=== PATIENT | female | born 1965 | race Caucasian/White ===

== ENCOUNTER 2017-10-07 03:27 | Inpatient (IN) | payer OTHER ==
[~2017-10-07] VITALS: Ht 152.4 cm; Wt 76.2 kg
[~2017-10-07 03:27] MED LIST: BUPROPION HCL150 M4 PO; ESCITALOPRAM OX20 MG PO; LAMICTAL150 M1 PO; MULTIVITAMINS1 EAC9 PO; TRAZODONE HCL50 M1 PO
[2017-10-07] MEDS ORDERED: ATIVAN1 M1 PO (08:11)
--- NOTE | 2017-10-07 10:32 | RADIOLOGY REPORT ---
EXAMINATION: XR LUMBAR SPINE CLINICAL INFORMATION: L4-L5 TLIF in OR. COMPARISON: CT scan of the lumbar spine dated 10/02/2017. TECHNIQUE: Crosstable lateral view of the lumbar spine FINDINGS/IMPRESSION: There is anterolisthesis of L4 on L5, a marker is present which is directed towards the L3-L4 intervertebral disc space.
--- NOTE | 2017-10-07 13:44 | Operative Report ---
Operative/Inv Procedure Report Surgery Date: 10/07/17 Name of Procedure: L 4/5 tlif, use of autograft, use of allograft, L4/5 posteriolateral fusion L4/5 posterior segment instrumentation with styrker yang, intervertebral device dennis tritanium, excision of L 4/5 synovial cyst, use of stealth navigation Pre-Operative Diagnosis: L4/5 spondylosis Post-Operative Diagnosis: same Estimated Blood Loss: 250 Surgeon/Rubber Mold Maker: pernell Padilla MD,Oly Mondragon Anesthesia: general endotracheal tube Operative/Procedure Note Note: dragon is down, help desk is not answering, I will dictate and send in
--- NOTE | 2017-10-07 13:51 | Operative Report ---
Operative/Inv Procedure Report Surgery Date: 10/07/17 Name of Procedure: 1. Bilateral L4 pars osteotomies 2. L4/5 far lateral discectomy 3. L4 5 transforaminal lumbar interbody fusion with [place] titanium cage, autograft 4. Nonsegmental L4 5 posterior lateral arthrodesis with [place] Suggs pedicle screws and rods, autograft, V toss, iliac crest bone marrow aspirate 5. O arm neuro navigation 6. Right iliac crest bone marrow aspirate 7. Resection of right L4 5 synovial cyst Pre-Operative Diagnosis: L4 5 spondylolisthesis, L4 5 stenosis Post-Operative Diagnosis: Same Estimated Blood Loss: 550cc Surgeon/Machine Biller: Randy CRAWFORD,Miko Torres M.D. Anesthesia: general endotracheal tube Monitors: Neurophysiologic monitoring IV Fluids: 3.1 L crystalloid Implants: Kylee Urine Output: 395 mL via Wu Drains: Medium Hemovac Specimens: L4 5 disc material, L4 5 synovial cyst Complications: None Condition: Stable Operative Indication: Patient is a 52-year-old woman status post work-related injury to her low back with a L4 5 spondylolisthesis and stenosis. She is had intractable back and leg pain, right greater than the left, despite prolonged conservative treatment. Given her ongoing symptoms which have failed to respond to nonoperative treatment, she now presents for surgical decompression and instrumented fusion. Operative/Procedure Note Note: Patient was taken to the operating room. After appropriate patient identification and surgical timeout, neurophysiologic monitoring leads were placed and baseline recordings obtained the patient underwent smooth induction of general endotracheal anesthesia without incident. Wu catheter was sterilely inserted. DVT prophylaxis was utilized throughout the case. Patient given 2 g of IV Preoperative Prophylaxis, Redosed at 4 Hours Mid Case. With All Tubes and Lines Secured She Was Carefully Turned to the Prone Position on the Andrea Table Taking Care to Ensure That All Pressure Points Were Well-Padded. The Lumbar Region Was Widely Prepped and Draped in Usual Sterile Fashion Using Povidone Solution. A Vertical Midline Skin Incision Was Marked and Infiltrated with Local Anesthetic. Localizing X-Ray Was Obtained with a Small Gauge Spinal Needle Placed Superficially Identifying This at the Level of L3 4. Skin incision was made just caudal to our theo with a 10 blade knife and extended caudally. A self-retaining retractor was placed. Dissection was carried through the subcutaneous tissue with the Bovie to the lumbodorsal fascia. The fascia was incised in midline and a subperiosteal dissection lumbar paravertebral muscles was performed bilaterally Bovie exposing underlying spinous processes lamina and the facet joints. Facets of L4 5 were noted to be markedly hypertrophic. Multiple synovial cysts were resected from the right facet passed off as specimen. A [place] 4 was placed at the presumed L4 pars and intraoperative x-ray was obtained and confirmed the correct localization. We exposed the transverse processes of L4 and L5 bilaterally which were decorticated with a high-speed drill and the lateral gutters packed. . We then focused our attention to the decompression. A L4 5 laminectomy, bilateral pars osteotomy and facetectomies were performed using the combination of Leksell rongeur, bone scalpel, and Kerrisons skeletonizing the pedicles of L4 and L5 bilaterally and widely decompressing the exiting L4, traversing L5 nerve roots, and midline thecal sac. We elected to place the pedicle screws first. The O arm reference arc was attached to the L5 spinous process and a spin was obtained. Working with O arm navigation, entry points for pedicle screws at L4 and L5 were selected bilaterally and marked with the drill. The pedicles were traversed with a gearshift under navigation. The holes were sounded, tapped, resounded and FloSeal placed within the pedicles to minimize backbleeding. Then working from the patient's more symptomatically right side, the thecal sac was gently mobilized to the midline. The underlying disc annulus was identified. A cuff of overlying venous epidural tissue was coagulated and divided. An annulotomy was made with a 11 blade knife and discectomy was performed with straight and angled curettes, disc space carin and rasps until all the cartilaginous endplates were removed. After appropriate trials, a 14 x 23 x 6 [place] titanium cage was selected. The cage was packed with morcellated autograft from the decompression and gently tamped into the interspace under direct guidance. Cage was countersunk. 15 mL of right iliac crest bone marrow aspirate was then obtained via a Jamshidi needle. This was added to the morcellated autograft. Autograft was then packed over the transverse processes from L4 to L5 bilaterally and further compressed with 2.5 mL of V toss on both sides. Once the cage was in position, pedicle screws were placed in predrilled holes. 6.5 x 45 mm screws were placed bilaterally at L4, 6.5 x 40 mm placed bilaterally at L5. With the L5 pedicle screws in place, we did note a hairline medial fissuring of the pedicle. Screws themselves were well seated good purchase. We obtained a second spin of the O arm confirming placement all the instrumentation which appeared in good position. 40 mm rods were then top loaded into the screws and locking caps placed. Gentle compression was placed across the L4 5 interspace and the screws were finally tightened with an antitorque device. A cross-link connector was placed and secured. Hemostasis is achieved using a bipolar, FloSeal, thrombin-soaked Gelfoam. The wound was scoped C irrigated with sterile saline bacitracin irrigation. 1 g of IV vancomycin powder was placed in the wound on the cut muscle and soft tissue surfaces. A medium Hemovac drain was placed into the wound and secured to the skin with a 2-0 nylon suture. Monitoring was stable and we began wound closure. Deep muscle was reapproximated interrupted 0 Vicryl suture the lumbodorsal fascia was reapproximated interrupted 0 Vicryl suture. Subcutaneous tissue was copiously irrigated and closed with interrupted 2-0 Vicryl suture and the skin was closed with tatiana. Wounds clean and dried. Bacitracin and a sterile occlusive dressing was placed. Patient was returned to the supine position, awakened extubated and taken to PACU in stable condition. She was noted to be moving all 4 extremities at the completion of the case. All sponge, needle, and injuring counts are correct at the completion of the procedure 3. Neurophysiologic monitoring was stable throughout the case. Findings: Advanced L4 5 facet arthrosis, synovial cyst, instability with stenosis Discharge Disposition: PACU
--- NOTE | 2017-10-07 14:08 | RADIOLOGY REPORT ---
EXAMINATION: XR LUMBAR SPINE CLINICAL INFORMATION: Intraoperative view of the lumbar spine L4-L5 COMPARISON: Lumbar spine plain film series dated 02/24/2017. TECHNIQUE: Intraoperative single lateral view FINDINGS/IMPRESSION: The marker is present in the posterior mid body of L4. There is grade 1 anterolisthesis of L4 on L5. The morphology of the vertebral bodies is within normal limits..
--- NOTE | 2017-10-07 14:51 | RADIOLOGY REPORT ---
EXAMINATION: XR LUMBOSACRAL SPINE CLINICAL INFORMATION: L4-L5 fusion intraoperative. COMPARISON: Lumbar spine study performed on the same day as the current TECHNIQUE: Intraoperative imaging. FINDINGS/IMPRESSION: Pedicle screws are present in the L4 and L5 vertebral bodies, intervertebral vertebral disc spacer is present. Fluoroscopy time: 4.5 seconds Dose: CTDI: 34.33 mGy DLP: 549.05 mGycm Images: 192
--- NOTE | 2017-10-07 17:51 | Admission Core Measures ---
Acute Coronary Syndrome (CM) ACS Core Measures Acute Coronary Syndrome Diagnosis No Congestive Heart Failure (NEW) CHF Core Measures Congestive Heart Failure Diagnosis No Cerebrovascular Accident (NEW) CVA Core Measures CVA/TIA Diagnosis No Venous Thromboembolism VTE Core Eileen (View Protocol) VTE Risk Factors Age>40 No Mechanical VTE Prophylaxis d/t N/A MechProphylax Ordered No VTE Pharm Prophylaxis d/t NA PharmProphylax ordered Problem List As ranked by this Provider includes Assessment & Plan 1. Spinal stenosis at L4-L5 level HOME MEDS Home Med List Bupropion HCl (Bupropion HCl Sr) 150 MG TABLET.ER 1 TAB PO QAM MENTAL HEALTH (Reported) Escitalopram Oxalate 20 MG TABLET 1 TAB PO QHS MENTAL HEALTH (Reported) Lamotrigine (Lamictal) 150 MG TABLET 1 TAB PO QAM MENTAL HEALTH (Reported) LORazepam (Ativan) 1 MG TAB 1 TAB PO BID anxiety (Reported) Multiple Vitamin (Multivitamins) 1 EACH TABLET 1 TAB PO QAM SUPPLEMENT ( Reported) Trazodone HCl 50 MG TABLET 1 TAB PO QPM MENTAL HEALTH/SLEEP (Reported)
--- NOTE | 2017-10-07 18:00 | PN- Neurosurgical ---
Subjective Subjective: Postop check: Patient with mild hypotension that is improving, normal blood pressure is less than 110 systolic per patient, current blood pressure is 95/50, she is asymptomatic. 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 She has no neurologic symptoms of the lower extremities. She is in good spirits Objective Vital Signs and I&Os Vital signs stable afebrile Heart rate 70, blood pressure 95/50 Physical Exam: Well-developed well-nourished no apparent distress. HEENT: Atraumatic, extraocular motion intact Neck: Supple, no lymphadenopathy Respiratory: No respiratory distress Back: Dressing clean dry and intact. Hemovac with small amount of bloody drainage Extremities: No edema, no calf pain Neuro: Alert and oriented x3 bilateral lower extremities are neurovascularly intact with sensation and motor grossly intact. Psych: Mood affect normal, normal memory normal judgment. Skin: Warm and dry, no rash on exposed skin Assessment/Plan Assessment/Plan Postop day #0 status post L4 5 TLIF secondary to L4 5 spondylolisthesis, L4 5 stenosis Postoperatively she is stable Continue Hemovac drain Perioperative antibiotics until drain is out CBC in the morning Regular diet Out of bed with back brace only Heparin subcutaneous starting in the morning wbat dressing change POD2 IVF until tolerating adequate PO Core Measures Venous Thromboembolism VTE Risk Factors Age>40 No Mechanical VTE Prophylaxis d/t N/A MechProphylax Ordered No VTE Pharm Prophylaxis d/t NA PharmProphylax ordered
[2017-10-07 18:20] VITALS: BP 90/54
[2017-10-07 18:30] VITALS: BP 90/54
[2017-10-07 20:13] VITALS: BP 92/50
[2017-10-07 20:30] VITALS: BP 92/50
[2017-10-07 22:20] VITALS: BP 86/52
[2017-10-07 22:30] VITALS: BP 86/52
[2017-10-08] VITALS (12 sets, daily range): BP systolic 82–98; BP diastolic 47–56
--- NOTE | 2017-10-08 07:35 | PN- Neurosurgical ---
Subjective Subjective: Pt feeling well. Notes improved strenght bilat LE. Pain well controlled. Objective Vital Signs and I&Os Vital Signs Date Time Temp Pulse Resp B/P B/P Pulse O2 O2 Flow FiO2 Mean Ox Delivery Rate 10/08 0630 98.7 70 18 88/56 10/08 0620 98.7 70 18 88/56 98 Nasal Cannula 10/08 0430 98.4 62 18 90/56 10/08 0412 98.4 62 18 9056 97 Nasal Cannula 10/08 0236 98.4 66 16 95/47 99 Nasal 2.0L Cannula 10/08 0230 98.4 66 16 95/47 10/08 0220 98.7 61 18 84/56 98 Nasal Cannula 10/08 0030 98.0 63 18 84/50 10/08 0012 98.0 63 18 82/50 97 Nasal Cannula 10/08 0000 97 Nasal 2.0L Cannula 10/07 2229 98.3 67 18 86/52 10/08 2219 98.3 67 18 86/52 97 Nasal Cannula 10/07 2029 98.1 63 16 92/50 10/07 2012 98.1 63 16 92/50 93 Room Air 10/07 1951 Nasal 2.0L Cannula 10/07 1830 97.9 60 18 90/54 10/07 1820 99 Nasal 2.0L Cannula 10/07 1820 97.9 60 18 /54 99 Nasal 2.0L Cannula Intake & Output 10/08 0800 10/08 0000 10/07 1600 10/07 0800 10/07 0000 10/06 1600 Intake Total 920 425 Output Total 700 550 Balance 220 -125 Intake, IV 600 225 Intake, Oral 320 200 Number 0 0 Bowel Movements Output, 100 200 Drainage Output, Urine 600 350 Patient 76.204 kg 76.204 kg Weight Physical Exam: AF, BP 90/50-60 P60-70's bright and alert, conversive and appropriate incision is c,d,i flat HV with 100cc over last shift serosanguinous normal neuro exam of bilat LE with improved DF, EHL dionisio right foot since op castelan in place, on CIVIL RIGHTS REPRESENTATIVE using IS to nearly 3L Physical Exam General Appearance: mild distress Current Medications: Current Medications Sig/Leizabeth Start time Last Medication Dose Route Stop Time Status Admin Acetaminophen 650 MG Q6P PRN 10/07 1830 AC PO Acetaminophen 1,000 MG .STK-MED ONE 10/07 0757 DC IV 10/07 0758 Bupropion HCl 150 MG DAILY 10/08 1000 AC PO Cefazolin Sodium 2 GM Q8H 10/08 0430 AC 10/08 N/A 1 UNIT IV 10/09 0429 0412 Cefazolin Sodium 2 GM IQ8 10/07 1600 DC 10/07 N/A 1 UNIT IV 10/08 1559 2029 Dexamethasone 4 MG .STK-MED ONE 10/07 1507 DC IM 10/07 1508 Dextrose/Sodium 1,000 ML .[id number] 10/07 1830 AC 10/08 Chloride IV 0227 Diazepam 5 MG TID PRN 10/07 1430 AC PO Docusate Sodium 100 MG DAILY NEEDED PRN 10/07 1830 AC PO Escitalopram Oxalate 20 MG QPM 10/07 2200 AC 10/07 PO 2155 Fentanyl Citrate 250 MCG .STK-MED ONE 10/07 0757 DC IM 10/07 0758 Heparin Sodium 5,000 UNIT Q8 10/08 0600 AC 10/08 (Porcine) SC 0627 Hydromorphone HCl 50 MG Q24H PRN 10/07 1445 AC Sodium Chloride 45 ML IV Influenza Virus 0.5 ML ONCE ONE 10/07 1915 DC Vaccine IM 10/07 1916 Ketorolac 15 MG Q6-PRN PRN 10/07 1545 AC Tromethamine IV 10/10 1544 Lamotrigine 50 MG DAILY 10/08 1000 AC PO Metoclopramide HCl 10 MG .STK-MED ONE 10/07 1507 DC IM 10/07 1508 Midazolam HCl 5 MG .STK-MED ONE 10/07 0756 DC IM 10/07 0757 Morphine Sulfate 4 MG .STK-MED ONE 10/07 1351 DC IM 10/07 1352 Morphine Sulfate 8 MG .STK-MED ONE 10/07 0757 DC IM 10/07 0758 Omeprazole 40 MG DAILY AC 10/08 0700 AC 10/08 PO 0627 Ondansetron HCl 4 MG .STK-MED ONE 10/07 1536 DC IM 10/07 1537 Ondansetron HCl 4 MG .STK-MED ONE 10/07 1429 DC IM 10/07 1430 Promethazine HCl 12.5 MG Q6P PRN 10/07 1830 AC IV 10/14 1444 Remifentanil 5 MG .STK-MED ONE 10/07 0758 DC IV 10/07 0759 Scopolamine HBr 0 .STK-MED ONE 10/07 0820 DC TOP Senna 374 MG AT BEDTIME NEED.. 10/07 1830 AC PO Trazodone HCl 50 MG AT BEDTIME 10/07 2200 AC 10/07 PO 2154 Results Last 48 Hours of Labs: Laboratory Tests 10/07 0735 Urines Urine Test NEGATIVE Assessment/Plan Assessment/Plan Pt POD1 s/p L4/5 decompression and fusion and doing well. Neurologically improved. Pain controlled. Plan: -OOB with brace, PT -cont HV until less than 50cc per shift, abx until drian out -DVT prophylaxis w/ subq hep, SCD's -IS 10x/hr [place] -dc CIVIL RIGHTS REPRESENTATIVE and use po percocet, robaxin prn -toradol ok if drain output less than 100 per shift -dc castelan -ADAT to regular, HLIV when taking po -if BP remains low or if she becomes tachy, would check cbc to r/o signif postop anemia. would not consider PRBC's unless symptomatic Core Measures Venous Thromboembolism VTE Risk Factors Age>40 No Mechanical VTE Prophylaxis d/t N/A MechProphylax Ordered No VTE Pharm Prophylaxis d/t NA PharmProphylax ordered Attending MD Review Statement Attending Statement Attending MD Statement: examined this patient, discuss w/resident/PA/SPECIAL TAX AUDITOR, discussed w/nursing
[2017-10-08 09:03] LABS: ABSOLUTE BASOPHIL COUNT 0 /CUMM (0.0-0.2); ABSOLUTE EOSINOPHIL COUNT 0 /CUMM (0.0-0.7); ABSOLUTE GRANULOCYTE CT 8.6 /CUMM (1.4-6.5); ABSOLUTE LYMPH COUNT 0.9 /CUMM (1.2-3.4); ABSOLUTE MONOCYTE COUNT 0.5 /CUMM (0.10-0.60); BASOPHIL % 0.2 % (0.0-2.0); EOSINOPHIL % 0 % (0-5); HEMATOCRIT 23.5 % (37-47); MEAN CORPUSCULAR HGB 28.3 PG (27.0-31.0); MEAN PLATELET VOLUME 8.4 FL (7.4-10.4); PLATELET COUNT 185 /CUMM (130-400); RBC DISTRIBUTION WIDTH 13.3 % (11.5-14.5); RED BLOOD CELL CT 2.74 /CUMM (4.20-5.40)
[2017-10-08 12:10] LABS: GRANULOCYTE % 86.2 % (42.2-75.2)
[2017-10-09 06:55] VITALS: BP 90/58
--- NOTE | 2017-10-09 07:47 | PN- Neurosurgical ---
Subjective Subjective: Pt doing well. Pain controlled well. sebastian po. ambulating on unit. Denies SOB, dizzyness, etc.. Objective Vital Signs and I&Os Vital Signs Date Time Temp Pulse Resp B/P B/P Pulse O2 O2 Flow FiO2 Mean Ox Delivery Rate 10/09 0655 98.5 76 20 90/58 94 Room Air 10/08 2202 99.2 68 20 90/56 93 10/08 2100 99.2 68 20 82/52 94 Room Air 10/08 1226 98.6 77 20 98/48 94 Intake & Output 10/09 0800 10/09 0000 10/08 1600 10/08 0800 10/08 0000 10/07 1600 Intake Total 650 200 920 425 Output Total 786 550 700 550 Balance -136 -350 220 -125 Intake, IV 50 600 225 Intake, Oral 600 200 320 200 Number 0 0 Bowel Movements Output, 86 150 100 200 Drainage Output, Urine 700 400 600 350 Patient 76.204 kg 76.204 kg Weight Physical Exam: AF, VSS awake and alert, conversive incision is c,d,i flat neuro exam normal bilat LE, no edema, no calf tenderness using IS regularly sebastian full diet yest, voiding on own, ambulating on unit with PT in brace HCT yest 23.5 HV with 86cc last shift Current Medications: Current Medications Sig/Elizabeth Start time Last Medication Dose Route Stop Time Status Admin Acetaminophen 650 MG Q6P PRN 10/07 1830 AC PO Bupropion HCl 150 MG DAILY 10/08 1000 AC 10/08 PO 0836 Cefazolin Sodium 2 GM Q8H 10/08 0430 AC 10/09 N/A 1 UNIT IV 10/10 0428 0424 Dextrose/Sodium 1,000 ML .[id number] 10/07 1830 DC 10/08 Chloride IV 0227 Diazepam 5 MG TID PRN 10/07 1430 AC 10/08 PO 1413 Diphenhydramine HCl 25 MG ONCE PRN 10/08 1215 DC 10/08 PO 10/08 1800 1223 Docusate Sodium 100 MG DAILY NEEDED PRN 10/07 1830 AC PO Escitalopram Oxalate 20 MG QPM 10/07 2200 AC 10/08 PO 2108 Heparin Sodium 5,000 UNIT Q8 10/08 0600 AC 10/09 (Porcine) SC 0642 Ketorolac 30 MG .STK-MED ONE 10/08 0834 DC Tromethamine IM 10/08 0835 Ketorolac 15 MG Q6-PRN PRN 10/07 1545 AC 10/09 Tromethamine IV 10/10 1544 0645 Lamotrigine 50 MG DAILY 10/08 1000 AC 10/08 PO 0836 Methocarbamol 500 MG Q6PRN PRN 10/08 0745 AC 10/08 PO 0837 Omeprazole 40 MG DAILY AC 10/08 0700 AC 10/09 PO 0642 Oxycodone/ 1 TAB Q4-6 PRN PRN 10/08 0745 AC 10/08 Acetaminophen PO 1234 Oxycodone/ 2 TAB Q4-6 PRN PRN 10/08 0745 AC 10/09 Acetaminophen PO 0218 Patient Medication 1 ED ONE ONE 10/08 1030 DC 10/08 Teaching ED 10/08 1031 1117 Promethazine HCl 12.5 MG Q6P PRN 10/07 1830 AC IV 10/14 1444 Senna 374 MG AT BEDTIME NEED.. 10/07 1830 AC 10/08 PO 0837 Sodium Chloride 250 ML BOLUS ONE 10/08 2200 DC 10/08 IV 10/08 2259 2210 Trazodone HCl 50 MG AT BEDTIME 10/07 2200 AC 10/08 PO 2108 Results Last 48 Hours of Labs: Laboratory Tests 10/08 0810 Hematology CBC w Diff NO MAN DIFF REQ WBC (4.8 - 10.8 /CUMM) 10.0 RBC (4.20 - 5.40 /CUMM) 2.74 L Hgb (12.0 - 16.0 G/DL) 7.8 L Hct (37 - 47 %) 23.5 L MCV (81.0 - 99.0 FL) 86.0 MCH (27.0 - 31.0 PG) 28.3 MCHC (33.0 - 37.0 G/DL) 33.0 RDW (11.5 - 14.5 %) 13.3 Plt Count (130 - 400 /CUMM) 185 MPV (7.4 - 10.4 FL) 8.4 Gran % (42.2 - 75.2 %) 86.2 H Lymphocytes % (20.5 - 51.1 %) 8.7 L Monocytes % (1.7 - 9.3 %) 4.9 Eosinophils % (0 - 5 %) 0 Basophils % (0.0 - 2.0 %) 0.2 Absolute Granulocytes (1.4 - 6.5 /CUMM) 8.6 H Absolute Lymphocytes (1.2 - 3.4 /CUMM) 0.9 L Absolute Monocytes (0.10 - 0.60 /CUMM) 0.5 Absolute Eosinophils (0.0 - 0.7 /CUMM) 0 Absolute Basophils (0.0 - 0.2 /CUMM) 0 Assessment/Plan Assessment/Plan Pt POD2 s/p L4/5 TLIF and doing well. Neurologically intact. Postop anemia without significant symptoms at this point. Plan: -repeat cbc this am, no transfusion unles HCT lower than yest or pt becomes symptomatic -cont to mobilze in brace -dc HV if less than 50cc per shift, will recheck in afternoon today -consider dc home if drain out later today, Hct stable, and pt cont to do well -discussed tentative dc instruction with pt this am - no driving, cover incision for showers, no lift more than 5lbs, brace when OOB at all times, fu with me 2 weeks -percocet, robaxin for dc Core Measures Venous Thromboembolism VTE Risk Factors Age>40 No Mechanical VTE Prophylaxis d/t N/A MechProphylax Ordered No VTE Pharm Prophylaxis d/t NA PharmProphylax ordered Attending MD Review Statement Attending Statement Attending MD Statement: examined this patient, discuss w/resident/PA/EYELET MAKER, discussed w/nursing
[2017-10-09 09:04] LABS: ABSOLUTE BASOPHIL COUNT 0 /CUMM (0.0-0.2); ABSOLUTE EOSINOPHIL COUNT 0 /CUMM (0.0-0.7); ABSOLUTE LYMPH COUNT 1.6 /CUMM (1.2-3.4); ABSOLUTE MONOCYTE COUNT 0.5 /CUMM (0.10-0.60); BASOPHIL % 0.4 % (0.0-2.0); EOSINOPHIL % 0.4 % (0-5); GRANULOCYTE % 73.7 % (42.2-75.2); HEMATOCRIT 23.4 % (37-47); MEAN CORPUSCULAR HGB CONC 33.5 G/DL (33.0-37.0); MEAN CORPUSCULAR VOLUME 86.3 FL (81.0-99.0); MEAN PLATELET VOLUME 8.6 FL (7.4-10.4); PLATELET COUNT 181 /CUMM (130-400); RBC DISTRIBUTION WIDTH 13.8 % (11.5-14.5); RED BLOOD CELL CT 2.71 /CUMM (4.20-5.40); WHITE BLOOD CELL COUNT 8.1 /CUMM (4.8-10.8)
[2017-10-09 13:42] VITALS: BP 92/58
[2017-10-09 14:38] VITALS: BP 96/52
[2017-10-09 22:39] VITALS: BP 104/60
[2017-10-10 06:52] VITALS: BP 100/52
--- NOTE | 2017-10-10 07:20 | PN- Neurosurgical ---
Subjective Subjective: Pt doing well. Feels good this am. Denies SOB, dizzyness or signif pain which she reports to be well controlled. Objective Vital Signs and I&Os Vital Signs Date Time Temp Pulse Resp B/P B/P Pulse O2 O2 Flow FiO2 Mean Ox Delivery Rate 10/10 0652 97.7 76 20 100/52 95 Room Air 10/09 2239 98.4 77 20 104/60 95 Room Air 10/09 1438 98.1 73 20 96/52 95 10/09 1342 92/58 Intake & Output 10/10 0800 10/10 0000 10/09 1600 10/09 0800 10/09 0000 10/08 1600 Intake Total 930 200 130 650 200 Output Total 925 780 986 550 Balance 5 200 -650 -336 -350 Intake, IV 130 80 50 Intake, Oral 800 200 50 600 200 Number 0 0 Bowel Movements Output, 25 80 86 150 Drainage Output, Urine 900 700 900 400 Physical Exam: AF, VSS awake and alert neuro intact incision c,d,i flat HV with 25cc over night ambulating with PT, walker sebastian po, voiding on own using IS to 2.5L Current Medications: Current Medications Sig/Elizabeth Start time Last Medication Dose Route Stop Time Status Admin Acetaminophen 650 MG Q6P PRN 10/07 1830 AC PO Bupropion HCl 150 MG DAILY 10/08 1000 AC 10/09 PO 0803 Cefazolin Sodium 2 GM Q8H 10/08 0430 AC 10/10 N/A 1 UNIT IV 10/11 0427 0522 Diazepam 5 MG TID PRN 10/07 1430 AC 10/09 PO 0905 Docusate Sodium 100 MG DAILY NEEDED PRN 10/07 1830 AC PO Escitalopram Oxalate 20 MG QPM 10/07 2200 AC 10/09 PO 2047 Heparin Sodium 5,000 UNIT Q8 10/08 0600 AC 10/10 (Porcine) SC 0531 Ketorolac 30 MG .STK-MED ONE 10/10 1907 DC Tromethamine IM 10/09 190 Ketorolac 15 MG Q6-PRN PRN 10/07 1545 AC 10/10 Tromethamine IV 10/10 1544 0319 Lamotrigine 50 MG DAILY 10/08 1000 AC 10/09 PO 0803 Methocarbamol 500 MG Q6PRN PRN 10/08 0745 AC 10/09 PO 0804 Omeprazole 40 MG DAILY AC 10/08 0700 AC 10/10 PO 0527 Oxycodone/ 1 TAB Q4-6 PRN PRN 10/08 0745 AC 10/09 Acetaminophen PO 1650 Oxycodone/ 2 TAB Q4-6 PRN PRN 10/08 0745 AC 10/10 Acetaminophen PO 0527 Promethazine HCl 12.5 MG Q6P PRN 10/07 1830 AC IV 10/14 1444 Senna 374 MG AT BEDTIME NEED.. 10/07 1830 AC 10/09 PO 1123 Trazodone HCl 50 MG AT BEDTIME 10/07 2200 AC 10/09 PO 2047 Results Last 48 Hours of Labs: Laboratory Tests 10/09 10/08 0810 0810 Hematology CBC w Diff NO MAN DIFF REQ NO MAN DIFF REQ WBC (4.8 - 10.8 /CUMM) 8.1 10.0 RBC (4.20 - 5.40 /CUMM) 2.71 L 2.74 L Hgb (12.0 - 16.0 G/DL) 7.9 L 7.8 L Hct (37 - 47 %) 23.4 L 23.5 L MCV (81.0 - 99.0 FL) 86.3 86.0 MCH (27.0 - 31.0 PG) 29.0 28.3 MCHC (33.0 - 37.0 G/DL) 33.5 33.0 RDW (11.5 - 14.5 %) 13.8 13.3 Plt Count (130 - 400 /CUMM) 181 185 MPV (7.4 - 10.4 FL) 8.6 8.4 Gran % (42.2 - 75.2 %) 73.7 86.2 H Lymphocytes % (20.5 - 51.1 %) 19.8 L 8.7 L Monocytes % (1.7 - 9.3 %) 5.7 4.9 Eosinophils % (0 - 5 %) 0.4 0 Basophils % (0.0 - 2.0 %) 0.4 0.2 Absolute Granulocytes (1.4 - 6.5 /CUMM) 6.0 8.6 H Absolute Lymphocytes (1.2 - 3.4 /CUMM) 1.6 0.9 L Absolute Monocytes (0.10 - 0.60 /CUMM) 0.5 0.5 Absolute Eosinophils (0.0 - 0.7 /CUMM) 0 0 Absolute Basophils (0.0 - 0.2 /CUMM) 0 0 Assessment/Plan Assessment/Plan Pt is POD3 s/p L4/5 TLIF and doing well. Neurologically intact Plan: -dc HV, abx this am -dressing change -home today with VNA -fu with me 2 weeks -brace when OOB, cover incision for showers, no submerging incision, no lift more than 5 lbs, no twist, bend, etc, no driving until fu -percocet and robaxin prn for dc Core Measures Venous Thromboembolism VTE Risk Factors Age>40 No Mechanical VTE Prophylaxis d/t N/A MechProphylax Ordered No VTE Pharm Prophylaxis d/t NA PharmProphylax ordered Attending MD Review Statement Attending Statement Attending MD Statement: examined this patient, discuss w/resident/PA/PACKAGING SALES REPRESENTATIVE
[2017-10-10] MEDS ORDERED: ROBAXIN500 M1 PO (08:00)
[2017-10-10] MEDS ORDERED: PERCOCET 5-3251 EACH PO (08:00)
--- NOTE | 2017-10-10 08:07 | Patient Discharge Instructions ---
Discharge Instructions General Discharge Information You were seen/treated for: bacl pain You had these procedures: L4-5 transforaminal lumbar interbody fusion Watch for these problems: fever over 100.5 drainage from wound Call Surgeon to remove: [place] (2 weeks) No bath, but you may shower: Yes Other wound care: keep wound clean and dry with daily dressing change Diet Continue normal diet: Yes Additional DIET Information: high iron diet Activity Pounds, do NOT lift more than: 5 Other activity limits: no bending or twisting Acute Coronary Syndrome Inclusion Criteria At DC or during hospital stay patient has or had the following: ACS DIAGNOSIS No Discharge Core Measures Meds if any: Prescribed or Continued at Discharge Meds if any: NOT Prescribed or Continued at Discharge Congestive Heart Failure Inclusion Criteria At DC or during hospital stay patient has or had the following: CHF DIAGNOSIS No Discharge Core Measures Meds if any: Prescribed or Continued at Discharge Meds if any: NOT Prescribed or Continued at Discharge Cerebrovascular accident Inclusion Criteria At DC or during hospital stay patient has or had the following: CVA/TIA Diagnosis No Discharge Core Measures Meds if any: Prescribed or Continued at Discharge Meds if any: NOT Prescribed or Continued at Discharge Venous thromboembolism Inclusion Criteria VTE Diagnosis No VTE Type NONE VTE Confirmed by (Test) NONE Discharge Core Measures - Per Current guidelines, there needs to be overlap - treatment for the first 5 days of Warfarin therapy. - If discharged on Warfarin prior to 5 days of - overlap therapy, the patient will need to be - assessed for post discharge needs including - *Post discharge parental anticoagulation - *Warfarin and/or parental anticoagulation education - *Follow up date to check INR post discharge At least 5 days overlap therapy as Inpatient No Meds if any: Prescribed or Continued at Discharge Note: Overlap Therapy is Warfarin and Anticoagulant Meds if any: NOT Prescribed or Continued at Discharge
--- NOTE | 2017-10-10 11:33 | Surgical Discharge Summary ---
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 Home Who Do You Live With? Family Services at Home: None What is Your Primary Language? Vietnamese Review of Systems: See H&P Hospital Course Course Attending Physician: Randy CRAWFORD,Oly Mondragon Primary Care Physician: Ciaran Crawford MD Hospital Course: Patient admitted for L4-5 discectomy and L4 pars osteotomy. She tolerated the procedure well and was transferred to a general surgical floor. Her diet was advanced and tolerated. Her pain was controlled with po pain medication. Her lumbar drain output was monitored until it was less than 50 cc output per shift. She remained on prophylactic abx while drain was in place. She was evaluated by physical therapy. Her neurovascular status remained intact. Her vital signs remained stable and within normal limits. She was deemed appropriate for discharge. Allergies: Coded Allergies: codeine (BAD ITCHING 10/04/17) Disposition Summary Disposition Principal Diagnosis: L4-5 spinal stenosis Additional Diagnosis: None Discharge Disposition: home health services Discharge Instructions General Discharge Information Code Status: Full Code Patient's Diet: Regular, advance as tolerated Patient's Activity: OOB, lumbar brace when walking, no lifting greater than 5 pounds Follow-Up Instructions/Appts: Follow up with Dr. Padilla in 2 weeks from date of surgery Medications at Discharge Discharge Medications: Continue taking these medications: Bupropion HCl (Bupropion HCl Sr) 150 MG TABLET.ER 1 Tablet ORAL Every Morning Comments: Last Taken:10/10/17 Time: 0800AM Lamotrigine (Lamictal) 150 MG TABLET 1 Tablet ORAL Every Morning Comments: Last Taken: 10/10/17 Time: 0800AM Escitalopram Oxalate (Escitalopram Oxalate) 20 MG TABLET 1 Tablet ORAL TAKE AT BEDTIME Comments: Last Taken: 10/09/17 Time: 2200PM Trazodone HCl (Trazodone HCl) 50 MG TABLET 1 Tablet ORAL Every night Comments: Last Taken: 10/09/17 Time: 2200PM Multiple Vitamin (Multivitamins) 1 EACH TABLET 1 Tablet ORAL Every Morning Comments: NOT GIVEN LORazepam (Ativan) 1 MG TAB 1 Tablet ORAL TWICE DAILY Comments: NOT GIVEN Start taking the following new medications: Oxycodone HCl/Acetaminophen (Percocet 5-325 MG Tablet) 5 MG-325 MG TABLET 1-2 Tablet ORAL EVERY 4-6 HOURS as needed for back pain Qty = 30 No Refills Comments: Last Taken: 10/10/17 Time: 0530AM Methocarbamol (Robaxin) 500 MG TABLET 1 Tablet ORAL Q6H as needed for muscle spasm Qty = 30 No Refills Comments: Last Taken: 10/10/17 Time: 12PM
[2017-10-10 14:37] VITALS: BP 110/60
== END 2017-10-10 18:15 | disposition home health service (06) | DRG 460 ==
LOC: SDA 03:27 → ENRESERV 14:16 → ENTRNSPT 17:57 → EDTRNSPT 18:13 → EDTRNSPTSTS 18:13 → 2NA 18:20 → CMPTRNSPT 18:26 → ENPENDDIS 10-10 07:59 → ENTRNSPT 10-10 18:03 → 2NA 10-10 18:15 → CMPTRNSPT 10-10 18:21
PROVIDERS: Physician Assistant Surgical
PROC: 8E0WXBZ Computer Assisted Procedure of Trunk Region (ICD-10-PCS; principal; 2017-10-07)
PROC: 0SG00AJ Fusion of Lumbar Vertebral Joint with Interbody Fusion Device, Posterior Approach, Anterior Column, Open Approach (ICD-10-PCS; principal; 2017-10-07)
PROC: 0QB00ZZ Excision of Lumbar Vertebra, Open Approach (ICD-10-PCS; principal; 2017-10-07)
DX: M47.26 Other spondylosis with radiculopathy, lumbar region (principal); F32.9 Major depressive disorder, single episode, unspecified; F41.9 Anxiety disorder, unspecified; K21.9 Gastro-esophageal reflux disease without esophagitis; G47.33 Obstructive sleep apnea (adult) (pediatric); F43.10 Post-traumatic stress disorder, unspecified
CPT/HCPCS: 2NASP; 36415; 36592; 72020; 72100; 81025; 87086; 88304; 97110-GO; 97116-GO; 97161-GP; 97530-GO; C9290; C9399; J0131; J0690; J1100; J1170; J1644; J1885; J2405; J2550; J2765; J3370; J3490; J7040; J7042; Q4118